=== PATIENT | male | born 1985 | race Caucasian/White ===

== ENCOUNTER 2017-01-04 22:04 | Inpatient (IN) | payer MEDICAID ==
--- NOTE | ~2017-01-04 | CR170 ---
[facility] A Service of [facility] & [facility] RADIOLOGY TEXT RESULTS PATIENT: ASHLEE LAFLEUR LOCATION: [facility] 217-01 : [birth year] UNIT #: [id number] AGE: [address]: Rudy Senior MD SEX: M ORDER DR: [id number] [address] [address] [id number] E MR#: [id number] Acc #: [id number] NAME: ASHLEE LAFLEUR : 1985 SEX: M STUDY DATE/TIME: 01/05/2017 3:02 UNIT: [facility] ROOM: STUDY DESCRIPTION: CR Knee 2 Views Rt Attending Physician: Alex Mello Aprn Ordering Physician: Alex Mello Aprn MEDICAL IMAGING REPORT This report is preliminary unless electronic signature is present EXAM Right knee series INDICATIONS Right knee pain and swelling for the past 3 days. PROCEDURE 3 views right knee. COMPARISON Findings. No fracture dislocation or joint effusion. IMPRESSION No acute bone injury Dictated by... Chemo Hernandes M.D. THIS IS AN ELECTRONICALLY VERIFIED REPORT Chemo Hernandes M.D. at 01/05/2017 10:05 PM KAE/shireen TD: 01/05/2017 04:20 JOB #: [id number] MEDICAL IMAGING REPORT Page 1 of 1 COPY
--- NOTE | ~2017-01-04 | HP ---
Unit #: [id number] #: [id number] Patient: ASHLEE LAFLEUR [id number] [facility]. [place], [place] [address] [id number] I MR#: [id number] NAME: ASHLEE LAFLEUR ROOM: 217 Age: 31 Sex: M Admission Date: 01/05/2017 : 1985 Attending Physician: Rudy Senior M.D. Referring Physician: Rudy Senior M.D. Primary Care Physician: No Primary Care Physician HISTORY AND PHYSICAL DIAGNOSIS ON ADMISSION Right lower extremity abscess. HISTORY OF PRESENT ILLNESS 31-year-old male who presented to [facility] with right leg swelling. Details are as per admission H and P. Patient is sleepy and not much verbal and is not an ideal historian. As per patient he was in his usual state of health when he noticed right leg swelling three days ago. it was around the back of the knee. Patient stated that it progressively worsened to a degree that he was not able to ambulate much. Therefore, he decided to come to the hospital. He denies seeking any medical care prior to coming to the ER. He denies having chest pain, tightness, heaviness, or shortness of air. The patient is complaining of feeling warm. The patient denies any nausea, vomiting or abdominal pain. There is no history of blood in stools or in urine. There is no history of headache of visual problems. The rest of the review of systems is negative. PAST MEDICAL HISTORY History of scoliosis as per patient. PAST SURGICAL HISTORY None as per patient. ALLERGIES No known drug allergies. HOME MEDICATIONS Albuterol, amoxicillin, Medrol dose pack, which patient states he was not taking at home. SOCIAL HISTORY The patient smokes a half pack of cigarettes per day and stated that he drinks socially. He also admits to smoking marijuana but denies any IV drug abuse. FAMILY HISTORY Patient denies any history of significant early in family. PHYSICAL EXAMINATION GENERAL: Patient is lying in bed. Is not in any obvious acute distress. VITAL SIGNS: Revealed temperature of 99.7, pulse was 82 per minute, respiratory rate is 16 per minute, blood pressure is 114/74. HEENT: No conjunctival congestion. Sclerae nonicteric. Unit #: [id number] #: [id number] Patient: ASHLEE LAFLEUR NECK: Supple. Trachea is central. RESPIRATORY: Revealed decreased breath sounds bilaterally. there are no wheezes or crackles. HEART: Regular rate and rhythm. S1 and S2. ABDOMEN: Soft and nontender. Bowel sounds are present in all four quadrants. EXTREMITIES: Patient has posterior left leg and upper calf swelling present with erythema present. It is warm to touch and (1) . Patient has a large area of induration as well. Pedal pulses are present. DIAGNOSTIC STUDIES LABORATORY STUDIES: Creatinine is 1.1, sodium 132, potassium 3.3. Next AST is 50, ALT is 96, WBC 17.8, hemoglobin 14.6, platelet count is 332. Urine tox screen was positive for marijuana and opiates. ASSESSMENT AND PLAN 1. 31-year-old patient is admitted to [facility] with right leg swelling. The patient likely has acute cellulitis and abscess. Has been seen by general surgery who is planning to do I and D. We will start patient on Zosyn and vancomycin for broad spectrum coverage until the patient's cultures are obtained. I will also start patient on R[place]rum for pain. 2. Marijuana abuse: Patient was encouraged to stop using drugs. 3. Tobacco abuse: Patient encouraged to quit smoking. 4. I will also order a right lower extremity venous Doppler to rule out DVT. Again this is Dr. Senior dictating admission and H and P on Mr. Ashlee Lafleur. Patient states that he does not have any PCP. I will hold on Lovenox for DVT prophylaxis for now as patient is going for surgery. Patient cannot tolerate SCDs. But he is a 31-year-old and I encouraged early mobilization. Dictated by Augustina Bell TD: 01/05/2017 13:00 JOB #: [id number] HISTORY AND PHYSICAL Page 1 of 1 X Rudy Senior MD HISTORY AND PHYSICAL
--- NOTE | ~2017-01-04 | DS ---
Unit #: [id number] #: [id number] Patient: ASHLEE LAFLEUR [id number] [address] [address] [id number] I MR#: [id number] NAME: ASHLEE LAFLEUR ROOM: 217 Age: 31 Sex: M Admission Date: 01/05/2017 : 1985 Discharge Date: 01/07/2017 Attending Physician: Rudy Senior M.D. Referring Physician: Rudy Senior M.D. Primary Care Physician: Doreen Primary Care Physician DISCHARGE SUMMARY ADMISSION DIAGNOSES 1. Acute cellulitis and abscess of the right lower extremity. 2. Marijuana abuse. 3. Tobacco abuse. DISCHARGE DIAGNOSES 1. Right posterior knee abscess. 2. Methicillin-resistant Staphylococcus aureus positive right leg wound culture. 3. Tobacco abuse. 4. Polysubstance abuse. 5. Marijuana abuse. 6. Mild acute anemia. 7. Right lower extremity pain, secondary to wound cellulitis. 8. Anxiety. OPHTHALMIC TECHNICIAN Eldon Noguera M.D., [facility]. PROCEDURE January 05, 2017, I and D of knee abscess. DIAGNOSTIC STUDIES LABORATORY: WBC 10.6, hemoglobin 12.4, hematocrit 37.4, platelet count 277,000. Sodium 139, potassium 3.9, chloride 109, CO2 of 24, glucose 83, BUN 6, creatinine 0.8. Calcium 8.6. Wound culture, right leg, final: MRSA 3+. Anaerobic right leg wound culture, preliminary: No growth at 48 hours. Blood cultures, preliminary x2: No growth at 24 hours. Final blood cultures pending at this time. Urine drug screen: Positive for amphetamines, marijuana, and opiates. IMAGING: January 07, 2017, right lower extremity duplex venous Doppler: Negative examination. No evidence of right lower extremity DVT. January 05, 2017, right knee series, three views of the right knee: No acute bone injury. CONDITION Stable. DISPOSITION Home. DISCHARGE MEDICATIONS Unit #: [id number] #: [id number] Patient: ASHLEE LAFLEUR 1. Sodium hypochlorite 0.125% topical solution apply topically with wet-to-wet dressings every 12 hours. 2. Bactrim DS one p.o. b.i.d. x10 days. Prescription written for #20, no refills. 3. [place] 7.5/325 mg tab one p.o. b.i.d. prior to dressing changes. Prescription written by Dr. Senior for #15, no refills. DISCHARGE INSTRUCTIONS 1. Patient will continue a regular diet. 2. Patient is to continue local wound care per [facility] orders. All discharge wound care orders including bathing and shower instructions per [facility]. 3. Patient's family is to be educated on how to do dressing changes at home. If patient's family is unable to do this, [facility] Home Health may be consulted to follow after discharge for dressing changes. 4. Patient is to call and schedule followup appointment or go to a walk-in clinic in one week for repeat CBC and BMP. The patient is to call and schedule a followup appointment with [facility] per their orders. HOSPITAL COURSE Patient is a 31-year-old male, who presented to [facility] on the date of admission with complaint of right lower extremity abscess. The patient was noted to not be an ideal historian at the time of presentation in the emergency department. Patient stated that he noticed a right leg swelling three days prior to presentation around the back of the knee. He came to the hospital when it worsened. He denied seeking any medical attention prior to presentation to the emergency department. He denied associated symptoms. His right lower extremity was noted to be warm and erythematous over its entire length. He is also noted to have a large area of induration posteriorly. He was treated with IV vancomycin and Zosyn in the emergency department. [facility] was consulted for further evaluation and management and possible I and D of right lower extremity abscess. Please refer to history and physical report for complete details. The patient was evaluated by Dr. Noguera on the date of admission. The patient was noted to have an abscess of the right posterior knee and discussion was held regarding operative I and D. Patient was agreeable. He proceeded to undergo I and D of the right knee abscess on that date and tolerated the procedure well. Wound cultures returned positive for 3+ MRSA from the right leg wound. Anaerobic cultures have shown no growth at this time. Preliminary blood cultures are negative x2 and final blood cultures are pending at this time. Patient is awake, alert, anxious, tolerating foods and fluid well. He has complained of significant right lower extremity pain associated with dressing changes despite an order for morphine 1 to 2 mg IV prior to dressing changes and oral analgesics. Patient reportedly has been yelling and cursing at the staff during dressing changes. The patient has been evaluated by Dr. Lindsey of [facility] and Dr. Senior of Hospitalist service today. Patient will continue dressing changes and will need to call to schedule a followup appointment with [facility] as dictated above. Patient has been prescriptions for all of his discharge medications as indicated above as well as an order for CBC and BMP in one week. Unit #: [id number] #: [id number] Patient: ASHLEE LAFLEUR Dictated by... Jil Rizzo A.P.R.N. for Augustina Bell/maria elena TD: 01/07/2017 16:49 JOB #: [id number] DISCHARGE SUMMARY Page 1 of 1 X Jil Rizzo APRN X DISCHARGE SUMMARY
--- NOTE | ~2017-01-04 | US85 ---
[facility] A Service of [facility] & [facility] RADIOLOGY TEXT RESULTS PATIENT: ASHLEE LAFLEUR LOCATION: [facility] : 87 UNIT #: [id number] AGE: [address]: Rudy Senior MD SEX: M ORDER DR: [id number] [facility] [address] [facility]. [place], [place] [address] [id number] I MR#: [id number] #: [id number] NAME: ASHLEE LAFLEUR : 1985 SEX: M STUDY DATE/TIME: 01/07/2017 11:54 UNIT: [facility] ROOM: [facility] STUDY DESCRIPTION: US LE Veins Unilat or Ltd Stdy Attending Physician: Rudy Senior M.D. Referring Physician: Rudy Senior M.D. Ordering Physician: Rudy Senior M.D. Primary Care Physician: Primary Care Physician No MEDICAL IMAGING REPORT This report is preliminary unless electronic signature is present EXAM Right lower extremity venous duplex 01/07/2017 HISTORY Right lower extremity edema for 8 days. Evaluate for deep vein thrombosis. TECHNIQUE Venous ultrasound examination of the right lower extremity was performed using grayscale, spectral Doppler and color flow Doppler imaging. FINDINGS The examination is negative. There is no evidence of right lower extremity deep venous thrombus from the groin to the lower calf. Visualized greater saphenous vein is also patent. IMPRESSION Negative examination. No evidence of right lower extremity deep venous thrombosis. Dictated by... Андрей Stacy M.D. THIS IS AN ELECTRONICALLY VERIFIED REPORT Андрей Stacy M.D. at 01/09/2017 8:21 AM CHARMAINE/santana TD: 01/07/2017 13:47 JOB #: [id number] MEDICAL IMAGING REPORT [facility] A Service of [facility] RADIOLOGY TEXT RESULTS PATIENT: ASHLEE LAFLEUR LOCATION: [facility] : 87 UNIT #: [id number] AGE: [address]: Rudy Senior MD SEX: M ORDER DR: Page 1 of 1 COPY
--- NOTE | ~2017-01-04 | OR ---
Unit #: [id number] #: [id number] Patient: ASHLEE LAFLEUR [id number] [address] [address] [id number] I MR#: [id number] NAME: ASHLEE LAFLEUR ROOM: [facility] Date of Procedure: 01/05/2017 Admission Date: 01/05/2017 Surgeon: Eldon Noguera M.D. : 1985 Attending Physician: Rudy Senior M.D. Referring Physician: Rudy Senior M.D. OPERATIVE REPORT PREOPERATIVE DIAGNOSIS Right posterolateral knee abscess. POSTOPERATIVE DIAGNOSIS Right posterolateral knee abscess. PROCEDURE PERFORMED Incision and drainage of knee abscess. ANESTHESIA General endotracheal. COMPLICATIONS None. ESTIMATED BLOOD LOSS Minimal. DESCRIPTION OF PROCEDURE After the patient was prepped and draped in the usual fashion, right knee was examined. In the posterolateral portion just above the knee crease, in the lower thigh, there was a punctate area of draining open purulence. This was probed with a hemostat. The abscess cavity extended superiorly up the posterior thigh approximately 4 cm. This was opened with electrocautery. Pus was expressed, sent for culture. The cavity was irrigated and suctioned free. There was no evidence of necrosis. The abscess cavity was all viable with granulation tissue. With this, the cavity was packed with half-strength Betadine. Dressing was applied. The patient was taken to the recovery room in good condition. Dictated by... Augustina LockwoodT/sheri TD: 01/05/2017 11:53 JOB #: [id number] Unit #: [id number] #: [id number] Patient: ASHLEE LAFLEUR OPERATIVE REPORT Page 1 of 1 X Eldon Noguera X PROCEDURE OPERATIVE NOTE
--- NOTE | ~2017-01-04 | CO ---
Unit #: [id number] #: [id number] Patient: ASHLEE LAFLEUR [id number] [address] [place], [place] [address] [id number] I MR#: [id number] NAME: ASHLEE LAFLEUR ROOM: 217 Age: 31 Sex: M Admission Date: 01/05/2017 : 1985 Attending Physician: Rudy Senior M.D. Consultation Date: 01/05/2017 CONSULTATION REPORT CONSULTING PHYSICIAN Dr. Senior. PRIMARY REASON FOR CONSULTATION Abscess of right posterior knee. HISTORY OF PRESENT ILLNESS The patient is a 31-year-old gentleman, who 3 days ago developed pain, swelling, and erythema of his right posterior knee. He is not sure how this started. He thinks it was either a bug bite or an ingrown hair. He has never had any previous such symptoms. The pain is moderately severe. He presented to the emergency room. They were able to partly drain abscess, but not completely and I was consulted for further workup and treatment. He denies any fevers or chills. The pain is moderately severe, nothing relieves it. REVIEW OF SYSTEMS A 10-point review is performed. This is negative other than what was already listed in the history of present illness. PAST MEDICAL HISTORY Significant for scoliosis. He has no chronic medical illnesses. PAST SURGICAL HISTORY He has had no previous surgeries. MEDICATIONS See his MAR. ALLERGIES He has no known medical allergies. SOCIAL HISTORY He denies alcohol abuse. He is a one-half pack per day cigarette smoker. He does smoke marijuana recreationally. FAMILY HISTORY Noncontributory. PHYSICAL EXAMINATION GENERAL: He is alert, in some mild distress. VITAL SIGNS: Temperature is 99.7, respirations 16, pulse 111, blood pressure 108/57. He is 100% saturated on room air. HEENT: Pupils are equal and round. Extraocular motions are intact. Unit #: [id number] #: [id number] Patient: ASHLEE LAFLEUR NECK: Supple without adenopathy. HEART: Regular rate and rhythm. LUNGS: Clear to auscultation anteriorly. ABDOMEN: Soft, benign, nontender, nondistended. EXTREMITIES: His right calf and foot has moderate 2+ edema. In his posterior right lateral knee, there was an area of induration and cellulitis about 5 to 6 cm in diameter. There was a punctate area that has been lanced, small amount of packing was removed. There was pus still emanating from this. NEUROLOGIC: Negative focal sensory or motor deficits. SKIN: Warm and dry. DIAGNOSTIC STUDIES LABORATORY RESULTS: Significant for white blood cell count of 17.8, potassium 3.3. ASSESSMENT AND PLAN The patient with abscess of right posterior knee and completely drained. Discussed operative incision and drainage with him. He is agreeable. This can be done today. I have discussed this with him and he is agreeable. Dictated by... Augustina Lockwood/sheri TD: 01/05/2017 13:46 JOB #: [id number] CONSULTATION REPORT Page 1 of 1 X Eldon Noguera CONSULTATION REPORT
[~2017-01-04 22:04] MED LIST: ALBUTEROL17 G1 IH; AMOXIL500 M1 PO; BACTRIM DS TABL1 TA1 PO; KEFLEX PO; MEDROL DOSEPAK4 MG PO
[2017-01-05 03:52] LABS: BASOPHIL# 0.1 X10e3 (0-0.3); BASOPHIL% 0.3 % (0-2.5); EOSINOPHIL# 0.1 X10e3 (0-0.7); EOSINOPHIL% 0.7 % (0.0-7.0); HEMOGLOBIN 14.6 gm/dL (13.0-16.0); LYMPHOCYTE# 1.8 X10e3 (1.0-3.5); MEAN CORPUSCULAR HEMOGLOBIN 29.9 PG (28-34); MEAN CORPUSCULAR HGB CONC 33.3 g/dL (30-36); MEAN PLATELET VOLUME 8.6 FL (6.5-11.5); MONOCYTE# 0.8 X10e3 (0-1.0); MONOCYTE% 4.5 % (3.0-12.0); NEUTROPHIL# 15.1 X10e3 (1.5-7.1); NEUTROPHIL% 84.5 % (40-75); PLATELET COUNT 332 X10e3 (140-420); RED BLOOD COUNT 4.89 X10e (3.90-5.60); RED CELL DISTRIBUTION WIDTH 12.9 % (11.0-15.5); WHITE BLOOD COUNT 17.8 X10e3 (4.0-10.5)
[2017-01-05 03:54] LABS: DIFF IND YES
[2017-01-05 04:05] LABS: ALBUMIN SERUM 4.3 g/dL (3.5-5.0); BILIRUBIN, DIRECT 0.2 mg/dL (0.0-0.2); BILIRUBIN,INDIRECT 0.8 mg/dL (0.0-0.9); BUN/CREATININE RATIO 11.81; CALCIUM SERUM 9.2 mg/dL (8.4-10.2); CREATININE SERUM 1.1 mg/dL (0.6-1.4); GLOM FILT RATE Estimated 90.3 mL/min (>60); POTASSIUM 3.3 mmol/L (3.5-5.1); PROTEIN TOTAL SERUM 7.7 g/dL (6.0-8.3)
[2017-01-05 04:59] LABS: PLATELET ESTIMATE NORMAL (NORMAL)
[2017-01-05 06:51] LABS: AMPHETAMINE POS (NEG); BARBITURATES NEG (NEG); BENZODIAZEPINES NEG (NEG); COCAINE NEG (NEG); MARIJUANA POS (NEG); OPIATES POS (NEG); TRICYCLIC ANTIDEPRESSANTS NEG (NEG); U METHADONE NEG (NEG)
[2017-01-05] MEDS ORDERED: NO MEDICATIONS (12:02)
[2017-01-06 07:01] LABS: HEMATOCRIT 38.1 % (38.0-50.0); MEAN CELL VOLUME 90.6 FL (83-96); MEAN CORPUSCULAR HEMOGLOBIN 29.7 PG (28-34); MEAN CORPUSCULAR HGB CONC 32.8 g/dL (30-36); MEAN PLATELET VOLUME 8.3 FL (6.5-11.5); RED BLOOD COUNT 4.2 X10e (3.90-5.60); RED CELL DISTRIBUTION WIDTH 13.4 % (11.0-15.5); WHITE BLOOD COUNT 14.8 X10e3 (4.0-10.5)
[2017-01-06 07:05] LABS: HEMOGLOBIN 12.5 gm/dL (13.0-16.0)
[2017-01-06 08:00] LABS: CALCIUM SERUM 8.4 mg/dL (8.4-10.2); CREATININE SERUM 0.9 mg/dL (0.6-1.4); POTASSIUM 4.1 mmol/L (3.5-5.1)
[2017-01-07 05:32] LABS: HEMATOCRIT 37.4 % (38.0-50.0); HEMOGLOBIN 12.4 gm/dL (13.0-16.0); MEAN CELL VOLUME 90.3 FL (83-96); MEAN CORPUSCULAR HGB CONC 33.2 g/dL (30-36); MEAN PLATELET VOLUME 8.3 FL (6.5-11.5); RED BLOOD COUNT 4.14 X10e (3.90-5.60); RED CELL DISTRIBUTION WIDTH 12.9 % (11.0-15.5); WHITE BLOOD COUNT 10.6 X10e3 (4.0-10.5)
[2017-01-07 06:30] LABS: BUN/CREATININE RATIO 7.5; CALCIUM SERUM 8.6 mg/dL (8.4-10.2); CREATININE SERUM 0.8 mg/dL (0.6-1.4); GLOM FILT RATE Estimated 120.8 mL/min (>60); POTASSIUM 3.9 mmol/L (3.5-5.1)
[2017-01-07] MEDS ORDERED: BACTRIM DS TAB1 EACH PO (18:08)
[2017-01-07] MEDS ORDERED: DAKIN'S MODIF1000 ML (18:08)
[2017-01-07] MEDS ORDERED: HYDROCODON-ACE1 EAC9 PO (18:09)
== END 2017-01-07 19:59 | disposition home or self-care (01) | DRG 581 ==
LOC: CED 22:04 → CEDOF 01-05 07:20 → CED 01-05 10:59 → C2A 01-05 10:59 → CEDOF 01-05 11:05 → C2A 01-07 19:59
PROVIDERS: Internal Medicine; Nurse Practitioner Family; Surgery
PROC: 0J9N0ZZ Drainage of Right Lower Leg Subcutaneous Tissue and Fascia, Open Approach (ICD-10-PCS; principal; 2017-01-05 09:45)
DX: L02.416 Cutaneous abscess of left lower limb (principal); B95.62 Methicillin resistant Staphylococcus aureus infection as the cause of diseases classified elsewhere; L03.115 Cellulitis of right lower limb; F12.10 Cannabis abuse, uncomplicated; F17.210 Nicotine dependence, cigarettes, uncomplicated; F41.9 Anxiety disorder, unspecified; D64.9 Anemia, unspecified
CPT/HCPCS: 36415; 73560; 80048; 80076; 80202; 80307; 85025; 85027; 87040; 87070; 87075; 87077; 87186; 87205; 93971; 96365; 99285; J1200; J2270; J2543; J3010; J3370; J3480

== ENCOUNTER 2017-02-04 09:10 | Emergency (ER) | payer MEDICAID ==
[~2017-02-04 09:10] MED LIST changes: +BACTRIM DS TAB1 EACH PO; +DAKIN'S MODIF1000 ML; +HYDROCODON-ACE1 EAC9 PO; +NO MEDICATIONS
== END 2017-02-04 10:35 | disposition home or self-care (01) ==
LOC: CFTX 09:10 → CED 09:10 → CFTX 09:51
DX: L02.416 Cutaneous abscess of left lower limb (principal); L02.415 Cutaneous abscess of right lower limb; F17.200 Nicotine dependence, unspecified, uncomplicated
CPT/HCPCS: 10060; 99283